=== PATIENT | female | born 1950 | race Caucasian/White ===

== ENCOUNTER 2016-06-28 07:47 | Day surgery (SDC) | payer OTHER ==
[2016-06-28] MEDS ORDERED: D5 LR 1000 ML 1,000 ML IV ONE (07:55)
[2016-06-28] MEDS ORDERED: DIPRIVAN VIAL 20 ML ONE (09:32)
[2016-06-28 10:30] VITALS: BP 118/68
== END 2016-06-28 10:15 | disposition home or self-care (01) ==
LOC: SURG1 07:47
PROVIDERS: ATTEND Internal Medicine Gastroenterology
PROC: 0DJD8ZZ Inspection of Lower Intestinal Tract, Via Natural or Artificial Opening Endoscopic (ICD-10-PCS; principal; 2016-06-28 08:30)
DX: Z12.11 Encounter for screening for malignant neoplasm of colon (principal); Z80.0 Family history of malignant neoplasm of digestive organs; K64.0 First degree hemorrhoids
CPT/HCPCS: A4217; J3490; J7120

== ENCOUNTER → 2016-07-20 | Outpatient (CLI) | payer OTHER ==
[2016-06-28 10:30] VITALS: BP 118/68
--- NOTE | 2016-07-20 09:41 | US ---
Examination: Abdominal ultrasound. Clinical History: Right upper quadrant pain. Technique: Real-time grayscale ultrasound was used to evaluate the upper abdomen. Comparison: None available. Findings: The gallbladder is suboptimally distended with no cholelithiasis, gallbladder wall thickening or per icholecystic fluid noted. The common bile duct measures 3 mm in diameter and is within normal limits. No intrahepatic biliary ductal dilatation is noted. The liver is normal in echogenicity with no focal mass. The pancreas is suboptimally visualized with no definite abnormality noted. The right kidney measures 8.9 cm in length and is normal in echogenicity with no focal mass, hydrone phrosis or nephrolithiasis noted. Impression: 1. Negative right upper quadrant abdominal ultrasound. Reported By:
== END ==
LOC: RAD 09:10
PROVIDERS: ATTEND Internal Medicine Gastroenterology
DX: R10.11 Right upper quadrant pain (principal)
CPT/HCPCS: 76705

== ENCOUNTER 2017-05-18 14:41 | Observation (INO) | payer OTHER ==
--- NOTE | 2017-05-18 15:15 | DR.NAUSEAF ---
HPI - Time Seen Time seen: 15:10 - Primary Care Physician Primary Care Physician: betzy - Complaints Chief Complaint Doctors Comments: Patient presents with symptoms of a haze coming over her from head to toe onset of these symptoms was 2015 and has been ongoing. She states that she feels weak and tired afterwards. There is no diaphoresis or chest pain. She has a history of thyroid disease and is medicated. Denies any evaluation previously. Chief Complaint:: pt stated she has been nauseated that come and goes but last night it has gotton worse and weakness - Source History Provided: Patient - Mode of Arrival Mode of Arrival: Ambulatory - Timing Onset of Chief Complaint: 05/11/17 PMH - PMH Past Medical History: Yes Past Medical History: Dyslipidemia, Hypertension, Hypothyroidism Past Surgical History: Yes Surgical History: Hysterectomy Past Surgical History Comment: left neck artery stint, skin cancer, right upper lobe of the lung removed. - Family History History of Family Medical Conditions: No - Social History Does patient currently use any type of tobacco product: No Have you used tobacco products in the last 12 months: No Type of Tobacco Use: None Does any household member use tobacco: No Alcohol Use: None Do you use any recreational Drugs:: No Lives With: Alone Lives Where: Home - infectious screening In the last 2 months have you had wt loss of >10#?: NO Have you had fever, night sweats or hemotysis?: No Have you traveled outside the country in the last 6 months?: No Isolation: Standard ROS - Review of Systems Constitutional: Malaise, Weakness. negative: Chills, Diaphoresis Eyes: No Symptoms Reported ENTM: No Symptoms Reported Respiratoy: No Symptoms Reported Cardiovascular: No Symptoms Reported Gastrointestinal/Abdominal: No Symptoms Reported Genitourinary: No Symptoms Reported Neurological: No Symptoms Reported Musculoskeletal: No Symptoms Reported Integumentary: No Symptoms Reported Hematologic/Lymphatic: No Symptoms Reported Endocrine: No Symptoms Reported Psychiatric: No Symptoms Reported All Other Systems: Reviewed and Negative PE - Vital Signs Vitals: Temperature 98.6 F Pulse Rate [Left Brachial] 51 Pulse Rate 60 Respiratory Rate 17 Blood Pressure [Left Arm] 168/84 Blood Pressure 138/74 O2 Sat by Pulse Oximetry 98 - General Limitations: No Limitations General Appearance: Alert, In No Apparent Distress - Head Head Exam: Normal Inspection, Atraumatic - Eyes Eye exam: Normal Appearance, PERRL, EOMI - ENT ENT Exam: Normal Exam - Neck Neck Exam: Normal Inspection, Full ROM - Chest Chest Inspection: Normal Inspection - Respiratory Respiratory Exam: Normal Lung Sounds Bilat Respiratory Exam: Bilateral Clear to Auscultation - Cardiovascular Cardiovascular Exam: Regular Rate, Normal Rhythm - Abdominal Exam Abdominal Exam: Normal Inspection, Normal Bowel Sounds Abdominal Tenderness: negative: RUQ, RLQ, LUQ, LLQ, Epigastrium, Suprapubic, Diffuse, Mild, Moderate, Severe, Other - Rectal Rectal Exam: Deferred - External Exam: Female: Deferred : Speculum Exam (Female): Deferred : Bimanual Exam (female): Deferred - Extremities Extremities Exam: Normal Inspection, Full ROM - Back Back Exam: Normal Inspection, Full ROM - Neurologic Neurological Exam: Alert, Oriented X3, CN II-XII Intact - Psychiatric Psychiatric Exam: Normal Affect, Normal Mood - Skin Skin Exam: Warm, Dry, Intact Course - Reevaluation 1st: Unchanged - Consultation Called: 16:50 (Dr Norris agreed to admit for further evaluation) ROR - Labs Reviewed Result Diagrams: 05/18/17 15:34 05/18/17 15:34 Laboratory: WBC 5.9 X10^3/uL (3.6-10.0) 05/18/17 15:34 RBC 4.17 X10^6/uL (3.5-5.4) 05/18/17 15:34 Hgb 13.4 g/dL (12.0-16.0) 05/18/17 15:34 Hct 38.5 % (36.0-47.0) 05/18/17 15:34 MCV 92.4 fL (80.0-100.0) 05/18/17 15:34 MCH 32.1 pg (27.0-34.0) 05/18/17 15:34 MCHC 34.7 g/dL (33.0-35.0) 05/18/17 15:34 RDW 12.7 % (11.6-16.5) 05/18/17 15:34 Plt Count 190 X10^3/uL (150.0-450.0) 05/18/17 15:34 MPV 8.7 fL (7.4-11.0) 05/18/17 15:34 Neut % (Auto) 66.3 % (42.0-75.0) 05/18/17 15:34 Lymph % (Auto) 24.7 % (21.0-51.0) 05/18/17 15:34 [place] % (Auto) 8.3 % (0.0-13.0) 05/18/17 15:34 Eos % (Auto) 0.3 % (0.9-2.9) L 05/18/17 15:34 Baso % (Auto) 0.4 % (0.2-1.0) 05/18/17 15:34 Neut # (Auto) 3.9 x10^3/uL (2.2-4.8) 05/18/17 15:34 Lymph # (Auto) 1.5 X10^3/uL (1.3-2.9) 05/18/17 15:34 [place] # (Auto) 0.5 x10^3/uL (0.3-0.8) 05/18/17 15:34 Eos # (Auto) 0.0 x10^3/uL (0.0-0.2) 05/18/17 15:34 Baso # (Auto) 0.0 X10^3/uL (0.0-0.1) 05/18/17 15:34 Absolute Nucleated RBC 0.0 /100WBC 05/18/17 15:34 Sodium 144 mmol/L (136-145) 05/18/17 15:34 Corrected Sodium 144 mmol/L (136-145) 05/18/17 15:34 Potassium 4.3 mmol/L (3.5-5.1) 05/18/17 15:34 Chloride 107 mmol/L (98-107) 05/18/17 15:34 Carbon Dioxide 29.5 mmol/L (21-32) 05/18/17 15:34 BUN 17 mg/dL (7-18) 05/18/17 15:34 Creatinine 0.78 mg/dL (0.55-1.02) 05/18/17 15:34 Est GFR (MDRD) Af Amer > 60 (>60) 05/18/17 15:34 Est GFR (MDRD) Non-Af > 60 (>60) 05/18/17 15:34 Glucose 118 mg/dL (65-99) H 05/18/17 15:34 Calcium 9.5 mg/dL (8.5-10.1) 05/18/17 15:34 Corrected Calcium TNP 05/18/17 15:34 Total Bilirubin 0.20 mg/dL (0.2-1.0) 05/18/17 15:34 AST 18 Units/L (15-37) 05/18/17 15:34 ALT 24 Units/L (12-78) 05/18/17 15:34 Alkaline Phosphatase 108 Units/L (46-116) 05/18/17 15:34 Creatine Kinase 34 Units/L (26-192) 05/18/17 15:34 CK-MB (CK-2) < 1.0 ng/mL (0-4.0) 05/18/17 15:34 CK/CKMB % Calc 2.9 % (<4) 05/18/17 15:34 Troponin I < 0.02 ng/mL (0-1.5) 05/18/17 15:34 Total Protein 7.4 g/dL (6.4-8.2) 05/18/17 15:34 Albumin 4.0 g/dL (3.4-5.0) 05/18/17 15:34 Globulin 3.4 g/dL (2.5-4.5) 05/18/17 15:34 Albumin/Globulin Ratio 1.2 Ratio (1.1-2.1) 05/18/17 15:34 TSH 3rd Generation 0.265 uIU/mL (0.358-3.74) L 05/18/17 15:34 - XRAY XRAY Interpreted by: Radiologist (CT Brain w/o:The ventricles are normal in size shape and position. There is marked decreased attenuation in the periventricular white matter. This is most frequently seen with diffuse small vessel vascular disease. however the distribution of the finding in this patient is somewhat unusual. MRI with and without contrast and with diffusion imaging is recommended in order to exclude other etiologies such as inflammatory or demyelinating processes. Small recent CVA obscured by the small vessel disease would also be detectable on the diffusion imaging sequences. There is also a questionable area of decreased attenuation in the inferior darlin bilaterally which may be artifactual or could represent additional small vessl disease or other white matter disease. There is no evidence for hemorrhage, mass lesion, or extra-axial fluid collection. Left sphenoid sinusitis is present. Impression: Diffuse but somewhat heterogeneous decreased attenuation in the periventricular white matter and bilateral darlin which is most frequently seen in small vessel vascular disease, however, the heterogeneity of this finding is unusual and for this reason MRI with and without contrast and with diffusion imaging is recommended in order to exclude demyelinating disease, inflammatory process, and recent CVA is which could be obscured by small vessel disease. left sphenoid sinusitis.) - Diagnosis Discharge Problem: r/o small vessel vascular disease, r/o Demyelinating disease, r/o recent CVA, r /o Inflammatory Process Hypothyroid Qualifiers: Hypothyroidism type: unspecified Qualified Code(s): E03.9 - Hypothyroidism, unspecified - Discharge Plan Condition: Stable - Follow ups/Referrals Follow ups/Referrals: Aly Mackey [Primary Care Provider] - 3 days - Instructions
[2017-05-18 15:42] LABS: BASOPHILS % (AUTO) 0.4 % (0.2-1.0); EOSINOPHILS % (AUTO) 0.3 % (0.9-2.9); HEMATOCRIT 38.5 % (36.0-47.0); HEMOGLOBIN 13.4 g/dL (12.0-16.0); LYMPHOCYTES # (AUTO) 1.5 X10^3/uL (1.3-2.9); LYMPHOCYTES % (AUTO) 24.7 % (21.0-51.0); MEAN CORPUSCULAR HEMOGLOBIN 32.1 pg (27.0-34.0); MEAN CORPUSCULAR HGB CONC 34.7 g/dL (33.0-35.0); MEAN CORPUSCULAR VOLUME 92.4 fL (80.0-100.0); MEAN PLATELET VOLUME 8.7 fL (7.4-11.0); MONOCYTES # (AUTO) 0.5 x10^3/uL (0.3-0.8); MONOCYTES % (AUTO) 8.3 % (0.0-13.0); NEUTROPHILS # (AUTO) 3.9 x10^3/uL (2.2-4.8); NEUTROPHILS % (AUTO) 66.3 % (42.0-75.0); PLATELET COUNT 190 X10^3/uL (150.0-450.0); RED BLOOD COUNT 4.17 X10^6/uL (3.5-5.4); RED CELL DISTRIBUTION WIDTH 12.7 % (11.6-16.5); WHITE BLOOD COUNT 5.9 X10^3/uL (3.6-10.0)
[2017-05-18 16:00] LABS: BLOOD UREA NITROGEN 17 mg/dL (7-18); CALCIUM 9.5 mg/dL (8.5-10.1); CARBON DIOXIDE 29.5 mmol/L (21-32); CHLORIDE 107 mmol/L (98-107); COR NA(FOR HYPERGLY) 144 mmol/L (136-145); CREATININE 0.78 mg/dL (0.55-1.02); SODIUM 144 mmol/L (136-145); TROPONIN I < 0.02 ng/mL (0-1.5); eGFR BLACK RACES > 60 (>60); eGFR NON BLACK RACES > 60 (>60)
[2017-05-18 16:04] LABS: ALANINE AMINOTRANSFERASE 24 Units/L (12-78); ALKALINE PHOSPHATASE 108 Units/L (46-116); ASPARTATE AMINO TRANSFERASE 18 Units/L (15-37); CKMB % 2.9 % (<4); CREATINE KINASE 34 Units/L (26-192); CREATINE KINASE MB < 1.0 ng/mL (0-4.0); TOTAL PROTEIN 7.4 g/dL (6.4-8.2); TSH (3RD GENERATION) 0.265 uIU/mL (0.358-3.74)
--- NOTE | 2017-05-18 16:43 | CT ---
HISTORY: Persistent nausea Study: CT head without contrast Comparison: None Technique: Axial noncontrast images with coronal and sagittal reformats. Dose reduction procedures we re used with mA/kv adjusted for body size. Findings: The ventricles are normal in size shape and position. There is marked decreased attenuation in the pe riventricular white matter . This is most frequently seen with diffuse small vessel vascular disease. However the distribution of the finding in this patient is somewhat unusual. MRI with and without co ntrast and with diffusion imaging is recommended in order to exclude other etiologies such as inflamm atory or demyelinating processes. Small recent CVA obscured by the small-vessel disease would also be detectable on the diffusion imaging sequences. There is also a questionable area of decreased attenu ation in the inferior darlin bilaterally which may be artifactual or could represent additional small v essel disease or other white matter disease. There is no evidence for hemorrhage, mass lesion, or ext ra-axial fluid collection. Left sphenoid sinusitis is present. IMPRESSION: Diffuse but somewhat heterogeneous decreased attenuation in the periventricular white matter and bila teral darlin which is most frequently seen in small vessel vascular disease, however, the heterogeneity of this finding is unusual and for this reason MRI with and without contrast and with diffusion imag ing is recommended in order to exclude demyelinating disease, inflammatory processes, and recent CVA is which could be obscured by small vessel disease. Left sphenoid sinusitis Reported By:
[2017-05-18 23:35] VITALS: BMI 22.0
[2017-05-19 05:51] LABS: BASOPHILS % (AUTO) 0.7 % (0.2-1.0); EOSINOPHILS % (AUTO) 0.6 % (0.9-2.9); HEMATOCRIT 34.4 % (36.0-47.0); HEMOGLOBIN 12.2 g/dL (12.0-16.0); LYMPHOCYTES # (AUTO) 2.3 X10^3/uL (1.3-2.9); LYMPHOCYTES % (AUTO) 42.6 % (21.0-51.0); MEAN CORPUSCULAR HEMOGLOBIN 32.4 pg (27.0-34.0); MEAN CORPUSCULAR HGB CONC 35.4 g/dL (33.0-35.0); MEAN CORPUSCULAR VOLUME 91.4 fL (80.0-100.0); MONOCYTES # (AUTO) 0.5 x10^3/uL (0.3-0.8); MONOCYTES % (AUTO) 8.5 % (0.0-13.0); NEUTROPHILS # (AUTO) 2.6 x10^3/uL (2.2-4.8); NEUTROPHILS % (AUTO) 47.6 % (42.0-75.0); PLATELET COUNT 157 X10^3/uL (150.0-450.0); RED BLOOD COUNT 3.76 X10^6/uL (3.5-5.4); RED CELL DISTRIBUTION WIDTH 12.8 % (11.6-16.5); WHITE BLOOD COUNT 5.4 X10^3/uL (3.6-10.0)
[2017-05-19 06:06] LABS: ALANINE AMINOTRANSFERASE 20 Units/L (12-78); ALBUMIN 3.4 g/dL (3.4-5.0); ALKALINE PHOSPHATASE 91 Units/L (46-116); ASPARTATE AMINO TRANSFERASE 16 Units/L (15-37); BLOOD UREA NITROGEN 13 mg/dL (7-18); CALCIUM 9.1 mg/dL (8.5-10.1); CARBON DIOXIDE 27.5 mmol/L (21-32); CHLORIDE 109 mmol/L (98-107); CREATININE 0.71 mg/dL (0.55-1.02); SODIUM 143 mmol/L (136-145); TOTAL PROTEIN 6.5 g/dL (6.4-8.2); eGFR BLACK RACES > 60 (>60); eGFR NON BLACK RACES > 60 (>60)
[2017-05-19] MEDS ORDERED: ROSUVASTATIN CALCIUM 5 MG PO SCH ×2 (09:00→21:00)
[2017-05-19] MEDS ORDERED: ASPIRIN EC 81 MG PO SCH ×2 (09:00→21:00)
[2017-05-19] MEDS ORDERED: ATENOLOL 100 MG PO SCH (09:00)
[2017-05-19] MEDS ORDERED: DIOVAN TAB 160 MG PO SCH ×2 (09:00→21:00)
[2017-05-19] MEDS ORDERED: PREVNAR 13 IM ONE (09:30)
[2017-05-19] MEDS: PROTONIX TAB 40 MG PO SCH ×2 (10:22→22:01)
[2017-05-19] MEDS: TENORMIN PO SCH (10:25)
--- NOTE | 2017-05-19 10:30 | DR.H&P ---
H&P - History & Physical for Day of: H&P Date: 05/18/17 - Chief Complaint Chief Complaint: WEAKNESS - Allergies Allergies/Adverse Reactions: Allergies Allergy/AdvReac Type Severity Reaction Status Date / Time promethazine [From Phenergan] Allergy Verified 05/18/17 14:42 - History of Present Illness History of Present Illness: 66 W[facility] ER ADMISSION WITH CO WAVES OF WEAKNESS THAT START WITH SLIGHT LOPEZ, THEN SENSATION COMES DOWN TO CHEST. PT DOES ADMIT TO MORE FREQUENT EPISODES OVER THE LAST FEW MOS. PT HAS PMH OF LUNG CA, HTN, OA. PT HAS HAD INCREASED STRESS OVER LAST 2-3 WEEKS. PT DENIES ANY VISION DISTURBANCES, NEARLY FAINTS BUT NO SYNCOPAL EPISODES - Past Medical History Past Medical History: Dyslipidemia, Hypertension, Hypothyroidism - Past Surgical History Surgical History: Angioplasty/Stents, Hysterectomy - Family History Family Medical History: Cancer, [place], Sudden Cardiac , Hypertension - Social History Does patient currently use any type of tobacco product: No Have you used tobacco products in the last 12 months: No Type of Tobacco Use: None Does any household member use tobacco: No Alcohol Use: None Drug Use: None - Review of Systems Constitutional: Weakness Eyes: No Symptoms Reported ENT: No Symptoms Reported Respiratory: No Symptoms Reported Cardiovascular: Palpitations Genitourinary: No Symptoms Reported Musculoskeletal: No Symptoms Reported Skin: No Symptoms Reported Neurological: Weakness - Physical Exam Vital Signs: Temperature 98.5 F Pulse Rate [Left Brachial] 51 Pulse Rate 60 Respiratory Rate 18 Blood Pressure [Left Arm] 161/76 Blood Pressure 138/74 O2 Sat by Pulse Oximetry 96 Oriented: Normal Eyes: Normal Ear: Normal Nose: Normal Throat: Normal Respiratory: Clear Throughout Cardiovascular: Normal. negative: Edema : Normal Auscultation: Bowel Sounds: Normal Palpation: Normal Tenderness: Normal Skin: Normal Musculoskeletal: Normal Psychiatric: Anxiety Affect: Anxious Speech Pattern: Clear, Appropriate - Assessment/Plan (1) Weakness Status: Acute Plan: ADMIT, ADMISSION LABS. CONTINUE LABS, START LEXAPRO 10MG PO Q HS. BP MONITORING. (2) Near syncope Status: Acute (3) Abnormal CT scan, head Status: Acute
[2017-05-19] MEDS ORDERED: LEXAPRO ONE (13:40)
[2017-05-19] MEDS: LEXAPRO PO SCH (13:53)
[2017-05-19] MEDS ORDERED: CRESTOR TAB 10 MG PO SCH (21:00)
[2017-05-20 06:25] LABS: BASOPHILS % (AUTO) 0.9 % (0.2-1.0); EOSINOPHILS % (AUTO) 0.8 % (0.9-2.9); HEMATOCRIT 35.9 % (36.0-47.0); HEMOGLOBIN 12.6 g/dL (12.0-16.0); LYMPHOCYTES # (AUTO) 2.1 X10^3/uL (1.3-2.9); LYMPHOCYTES % (AUTO) 40.6 % (21.0-51.0); MEAN CORPUSCULAR HEMOGLOBIN 32.5 pg (27.0-34.0); MEAN CORPUSCULAR HGB CONC 35.1 g/dL (33.0-35.0); MEAN CORPUSCULAR VOLUME 92.4 fL (80.0-100.0); MEAN PLATELET VOLUME 9.1 fL (7.4-11.0); MONOCYTES # (AUTO) 0.5 x10^3/uL (0.3-0.8); MONOCYTES % (AUTO) 8.8 % (0.0-13.0); NEUTROPHILS # (AUTO) 2.6 x10^3/uL (2.2-4.8); NEUTROPHILS % (AUTO) 48.9 % (42.0-75.0); PLATELET COUNT 157 X10^3/uL (150.0-450.0); RED BLOOD COUNT 3.89 X10^6/uL (3.5-5.4); RED CELL DISTRIBUTION WIDTH 12.8 % (11.6-16.5); WHITE BLOOD COUNT 5.2 X10^3/uL (3.6-10.0)
[2017-05-20 06:36] LABS: ALANINE AMINOTRANSFERASE 21 Units/L (12-78); ALBUMIN 3.4 g/dL (3.4-5.0); ALKALINE PHOSPHATASE 91 Units/L (46-116); ASPARTATE AMINO TRANSFERASE 17 Units/L (15-37); BLOOD UREA NITROGEN 11 mg/dL (7-18); CARBON DIOXIDE 26.1 mmol/L (21-32); CHLORIDE 109 mmol/L (98-107); SODIUM 143 mmol/L (136-145); TOTAL PROTEIN 6.5 g/dL (6.4-8.2); eGFR BLACK RACES > 60 (>60); eGFR NON BLACK RACES > 60 (>60)
[2017-05-20] MEDS ORDERED: LEXAPRO ONE (07:48)
[2017-05-20] MEDS: PROTONIX TAB 40 MG PO SCH (08:37)
[2017-05-20] MEDS: TENORMIN PO SCH (08:37)
[2017-05-20] MEDS: LEXAPRO PO SCH (08:37)
[2017-05-20] MEDS ORDERED: PREVNAR 13 IM ONE (10:00)
--- NOTE | 2017-05-20 10:33 | MRI ---
STUDY: MRI OF THE BRAIN WITHOUT AND WITH GADOLINIUM HISTORY: Demyelinating disease. Inflammatory process. Technique: Multiplanar multi-sequence MRI of the brain was obtained using standard departmental lisy col. Sagittal and axial T1, axial T2, FLAIR, diffusion (DWI/ADC), GRE, and coronal T2 images through the brain were performed. 13 cc of Omniscan was administered intravenously without reported complication following acquisition of informed written consent. Post gadolinium axial and coronal T1 weighted images were also performed and reviewed. Comparison: Head CT from May 18, 2017. Findings: Pre gadolinium brain: The sulci, cisterns and ventricles are age appropriate. There are confluent and scattered foci of T2 prolongation in the periventricular and subcortical white matter of both hemisp heres. This is a nonspecific finding which likely represents microangiopathic change in a patient of this age. There is no evidence of acute territorial infarction, hemorrhage, mass, mass effect, or midline shift . There are no abnormal intra-axial or extra-axial fluid collections. The major intracranial vascular flow voids appear intact. The left vertebral artery is dominant. Post gadolinium brain: Following the uneventful administration of intravenous gadolinium, there is no evidence of abnormal parenchymal or leptomeningeal enhancement. IMPRESSION: 1. No evidence of acute intracranial abnormality. 2. Nonspecific white matter change. Reported By:
[2017-05-20 13:56] VITALS: BP 125/58
== END 2017-05-20 14:20 | disposition home or self-care (01) ==
LOC: ER 14:54 → MED/SURG 17:58
PROVIDERS: ADMIT Internal Medicine; ATTEND Internal Medicine
PROC: 3E0234Z Introduction of Serum, Toxoid and Vaccine into Muscle, Percutaneous Approach (ICD-10-PCS; principal; 2017-05-20)
DX: R55 Syncope and collapse (principal); R51 Headache; R53.1 Weakness; R11.0 Nausea; J32.3 Chronic sphenoidal sinusitis; E78.2 Mixed hyperlipidemia; I10 Essential (primary) hypertension; E03.8 Other specified hypothyroidism; R94.31 Abnormal electrocardiogram [ECG] [EKG]; R93.0 Abnormal findings on diagnostic imaging of skull and head, not elsewhere classified; Z85.118 Personal history of other malignant neoplasm of bronchus and lung; Z23 Encounter for immunization
CPT/HCPCS: 36415; 70450; 70553; 80053; 82550; 82553; 84439; 84443; 84484; 85025; 93005; 96365; 96367; 99218; 99284; A4216; A4222; G0378